=== PATIENT | male | born 1945 | race Native Hawaiian/Other Pacific Islander ===

== ENCOUNTER 2018-07-11 09:29 | Inpatient (IN) | payer OTHER ==
[2018-07-11 10:56] LABS: BASO # 0.1 K/uL (0.0-0.2); BASO % 0.5 % (0.0-2.0); EOS # 0.3 K/uL (0.0-0.7); EOS % 2.7 % (0.0-4.0); HEMOGLOBIN 15.1 g/dL (12.0-18.0); LYMPH # 1.8 K/uL (1.0-4.3); MEAN CELL VOLUME 90.3 fL (80.0-94.0); MEAN CORPUSCULAR HEMOGLOBIN 30.2 pg (27.0-31.0); MEAN CORPUSCULAR HGB CONC 33.5 g/dL (33.0-37.0); MEAN PLATELET VOLUME 8.4 fL (7.2-11.7); MONO % 9.9 % (0.0-10.0); NEUT # 6.5 K/uL (1.8-7.0); NEUT % 67.9 % (50.0-75.0); RBC 5.01 Mil/uL (4.40-5.90); RED CELL DISTRIBUTION WIDTH 13.3 % (11.5-14.5); WHITE BLOOD COUNT 9.6 K/uL (4.8-10.8)
[2018-07-11 11:02] LABS: URINE BILIRUBIN NEGATIVE (NEGATIVE); URINE BLOOD 1+ (NEGATIVE); URINE CLARITY Hazy (Clear); URINE COLOR Yellow (YELLOW); URINE GLUCOSE (UA) NORMAL (Normal); URINE LEUKOCYTE ESTERASE NEG Leu/uL (Negative); URINE PROTEIN NEGATIVE (NEGATIVE); URINE UROBILINOGEN NORMAL mg/dL (0.2-1.0)
[2018-07-11 11:02] LABS: INR 1.1; PARTIAL THROMBOPLASTIN TIME 29 SECONDS (21-34); PROTHROMBIN TIME 11.9 SECONDS (9.7-12.2)
[2018-07-11 11:06] LABS: ALB/GLOB RATIO 1.5 (1.0-2.1); ALBUMIN 4.5 g/dL (3.5-5.0); ALT/SGPT 13 U/L (21-72); AST/SGOT 30 U/L (17-59); BLOOD UREA NITROGEN 18 mg/dL (9-20); CALCIUM 8.9 mg/dl (8.6-10.4); GFR NON-AFRICAN AMERICAN 60
--- NOTE | 2018-07-11 11:10 | C.PDOC ---
History Of Present Illness 72 y/o male, w/PMhx of HTN and CABG with coronary stent, presents to the ER complaining of subjective dyspnea, palpitations, and "dry mouth" which has been present since yesterday. Patient is also complaining of left leg pain. Patient states that he was on a long flight from [facility] to the [place] Denies having fever, chills, CP, nausea, and vomiting. Time Seen by Provider: 07/11/18 10:27 Chief Complaint (Nursing): Shortness Of Breath History Per: Patient History/Exam Limitations: no limitations Onset/Duration Of Symptoms: Days Current Symptoms Are (Timing): Still Present Severity: Moderate Past Medical History Reviewed: Historical Data, Nursing Documentation, Vital Signs Vital Signs: Last Vital Signs Temp 97.8 F 07/11/18 09:32 Pulse 124 H 07/11/18 09:32 Resp 18 07/11/18 09:57 BP 159/92 H 07/11/18 09:32 Pulse Ox 95 07/11/18 09:32 - Medical History PMH: HTN Surgical History: CABG, Coronary Stent Family History: States: No Known Family Hx - Social History Hx Alcohol Use: No Hx Substance Use: No - Immunization History Hx Tetanus Toxoid Vaccination: No Hx Influenza Vaccination: No Hx Pneumococcal Vaccination: No Review Of Systems Except As Marked, All Systems Reviewed And Found Negative. Constitutional: Negative for: Fever, Chills Cardiovascular: Positive for: Palpitations. Negative for: Chest Pain Respiratory: Positive for: Other (subjective dyspnea) Musculoskeletal: Positive for: Leg Pain (left leg pain) Neurological: Negative for: Weakness, Numbness Physical Exam - Physical Exam Appears: Non-toxic, No Acute Distress Skin: Normal Color, Warm, Dry Head: Atraumatic, Normacephalic Eye(s): bilateral: Normal Inspection Nose: Normal Oral Mucosa: Moist Throat: Normal, No Erythema Neck: Supple Chest: Symmetrical Cardiovascular: Other (irregularly regular heart rate - tachycardic) Respiratory: Normal Breath Sounds, No Rales, No Rhonchi, No Wheezing Gastrointestinal/Abdominal: Soft, No Tenderness, No Guarding, No Rebound Extremity: Normal ROM Neurological/Psych: Oriented x3, Normal Speech ED Course And Treatment - Laboratory Results Result Diagrams: 07/11/18 10:48 07/11/18 10:48 Lab Results: PT 11.9 SECONDS (9.7-12.2) 07/11/18 10:48 INR 1.1 07/11/18 10:48 APTT 29 SECONDS (21-34) 07/11/18 10:48 Urine Color Yellow (YELLOW) 07/11/18 10:50 Urine Clarity Hazy (Clear) 07/11/18 10:50 Urine pH 7.0 (5.0-8.0) 07/11/18 10:50 Ur Specific [place] 1.010 (1.003-1.030) 07/11/18 10:50 Urine Protein Negative mg/dL (NEGATIVE) 07/11/18 10:50 Urine Glucose (UA) Normal mg/dL (Normal) 07/11/18 10:50 Urine Ketones Negative mg/dL (NEGATIVE) 07/11/18 10:50 Urine Blood 1+ (NEGATIVE) H 07/11/18 10:50 Urine Nitrate Negative (NEGATIVE) 07/11/18 10:50 Urine Bilirubin Negative (NEGATIVE) 07/11/18 10:50 Urine Urobilinogen Normal mg/dL (0.2-1.0) 07/11/18 10:50 Ur Leukocyte Esterase Neg [place]/uL (Negative) 07/11/18 10:50 Urine WBC (Auto) < 1 /hpf (0-5) 07/11/18 10:50 Urine RBC (Auto) 2 /hpf (0-3) 07/11/18 10:50 ECG: Interpreted By Me, Viewed By Mn ECG Rhythm: Sinus Rhythm Interpretation Of ECG: EKG 1 - Atrial Fibrillation [address]/ T wave abnormalities. EKG 2 - Normal Sinus Rhythm 64 bpm with lateral T wave changes Rate From EC O2 Sat by Pulse Oximetry: 95 (RA) Pulse Ox Interpretation: Normal - Other Rad CXR X-Ray: Viewed By Me, Read By Radiologist Interpretation: Date of service: 07/11/2018. HISTORY: chest pain. COMPARISON: No prior study available for comparison. FINDINGS: LUNGS: No active pulmonary disease. PLEURA: No significant pleural effusion identified, no pneumothorax apparent. CARDIOVASCULAR: Sternotomy wires and CABG clips. Heart size borderline enlarged. No aortic atherosclerotic calcification present. No pulmonary vascular congestion. OSSEOUS STRUCTURES: No significant abnormalities. VISUALIZED UPPER ABDOMEN: Normal. OTHER FINDINGS: None. IMPRESSION: No active disease. Medical Decision Making Medical Decision Making: new onset afib - also ro pe Plan: --Labs --EKG --CXR --UA --Cardizem noted trop, heaprin startted. s/p cardizem pt converted to sinus, nonspecifc changes, no cp. accpeted dr tan. Disposition - Disposition Disposition: HOSPITALIZED Disposition Time: 16:00 Condition: FAIR - Clinical Impression Clinical Impression: CHF (congestive heart failure), Atrial fibrillation with RVR - Scribe Statement The provider has reviewed the documentation as recorded by the Everett Hernández Provider Attestation: All medical record entries made by the Everett were at my direction and personally dictated by me. I have reviewed the chart and agree that the record accurately reflects my personal performance of the history, physical exam, medical decision making, and the department course for this patient. I have also personally directed, reviewed, and agree with the discharge instructions and disposition. Decision To Admit - Pt Status Changed To: Hospital Disposition Of: Inpatient - Admit Certification Admit to Inpatient:: After my assessment, the patient will require hosp italization for at least two midnights. This is because of the severity of symptoms shown, intensity of services needed, and/or the medical risk in this patient being treated as an outpatient. - InPatient: Physician Admission Certification: I certify that this patient requires 2 or more midnights of care for the following reason:: needs heparin - . Bed Request Type: Telemetry Admitting Physician: Oswaldo Tan Patient Diagnosis: CHF (congestive heart failure), Atrial fibrillation with RVR
[2018-07-11 11:42] LABS: D DIMER < 200 ng/mlDDU (0-243)
[2018-07-11] MEDS ORDERED: Heparin25000 units/250ml 1/2NS 25,000 UNITS/250 ML BAG IV ONE (11:44)
[2018-07-11 12:02] LABS: B-TYPE NATRIURETIC PEPTIDE 2780 pg/mL (0-900)
--- NOTE | 2018-07-11 12:25 | RAD ---
Date of service: 07/11/2018 HISTORY: chest pain COMPARISON: No prior study available for comparison FINDINGS: LUNGS: No active pulmonary disease. PLEURA: No significant pleural effusion identified, no pneumothorax apparent. CARDIOVASCULAR: Sternotomy wires and CABG clips. Heart size borderline enlarged. No aortic atherosclerotic calcification present. No pulmonary vascular congestion. OSSEOUS STRUCTURES: No significant abnormalities. VISUALIZED UPPER ABDOMEN: Normal. OTHER FINDINGS: None. IMPRESSION: No active disease.
[2018-07-11 13:58] VITALS: RESP 20
--- NOTE | 2018-07-11 15:04 | CP.PCM.HP ---
History of Present Illness - History of Present Illness History of Present Illness: PGY-1 History and Physical for Dr. Ramírez Smith Sejaldae Luther is a 72-year-old male with HTN, vertigo, CABG and stenting presenting with uncomfortable feeling in chest, palpitations, tachycardia, elevated blood pressure, dry mouth, left hip pain. These complaints, except the leg pain, started last night when his son took his blood pressure and checked his pulse. The symptoms remained until the morning, at which point he agreed to go to the hospital. Upon pt interview the uncomfortable feeling in chest, palpitations, tachycardia had become better. The leg pain started 1 month ago when pt had been on a 16-hour flight from [facility] to the [place] to visit his who he has been staying with for the past month. During the flight he was not able to move much and developed pain of the left hip that radiates down the leg to the top of the foot. Pt states he exercises regularly everyday, but had not been able to since the leg pain. Pt believes it is this lack of regular exercise which caused him to feel the palpitations, tachycardia, uncomfortable feeling in the chest, and elevated blood pressure. The pain is intermittent and he rates the leg pain an 8/10 at worst and 0/10 at best and currently. The pain will last for 5-10 minutes until he is able to readjust his body and relieve the pain. He takes ibuprofen which helps, and walking/exercising/taking stairs aggravates the leg pain. Surgical: Angioplasty 2005, CABG 2007 Social: No drugs, no tobacco, alcohol very little, exercises regularly, 2-3 cups of tea per day. Lives in a 1-story home in [facility]. Visits [place] once/year to visit son. Works in the . Allergies: none Medication: Metoprolol, Clopidogrel, Statin, Aspirin, Olmosartan, Betahistine hydrochloride (for dizziness) Past medical Hx: HTN, Vertigo Family Hx: Father at 56 (pt suspects from a heart condition) PMD: PMD via in [facility] Code status: Patient stated that he would not like to be resuscitated, but per patient and son's wishes, they will take some more time to discuss. Present on Admission - Present on Admission Any Indicators Present on Admission: No Review of Systems - Constitutional Constitutional: absent: Chills, Fever - EENT Eyes: absent: Blurred Vision, Change in Vision Ears: absent: Tinnitus, Dizziness Nose/Mouth/Throat: absent: Nasal Congestion, Nasal Discharge - Cardiovascular Cardiovascular: Palpitations (resolved), Rapid Heart Rate (resolved). absent: Chest Pain, Chest Pain at Rest, Dyspnea, Lightheadedness, Pedal Edema - Gastrointestinal Gastrointestinal: absent: Belching, Bloating, Constipation, Diarrhea, Nausea, Vomiting - Genitourinary Genitourinary: absent: Dysuria, Flank Pain - Musculoskeletal Musculoskeletal: absent: Back Pain, Stiffness - Neurological Neurological: absent: Confusion, Dizziness, Focal Weakness, Headaches, Paresthesias, Sensory Deficit, Tingling - Psychiatric Psychiatric: absent: Anxiety, Depression - Hematologic/Lymphatic Hematologic: absent: Easy Bleeding, Easy Bruising Past Patient History - Past Social History Smoking Status: Never Smoked - CARDIAC Hx Hypertension: Yes - NEUROLOGICAL Hx Dizziness: Yes - HEENT Hx Cataracts: Yes - MUSCULOSKELETAL/RHEUMATOLOGICAL Hx Falls: Yes - PSYCHIATRIC Hx Substance Use: No - SURGICAL HISTORY Hx Coronary Artery Bypass Graft: Yes Hx Coronary Stent: Yes - ANESTHESIA Hx Anesthesia: Yes Hx Anesthesia Reactions: No Has any member of the family had a problem w/ anesthesia?: No Meds Allergies/Adverse Reactions: Allergies Allergy/AdvReac Type Severity Reaction Status Date / Time No Known Allergies Allergy Unverified 07/11/18 09:37 Physical Exam - Head Exam Head Exam: ATRAUMATIC, NORMOCEPHALIC - Eye Exam Eye Exam: EOMI - ENT Exam ENT Exam: Mucous Membranes Moist - Respiratory Exam Respiratory Exam: Clear to Auscultation Bilateral, NORMAL BREATHING PATTERN. absent: Rales, Rhonchi, Wheezes - Cardiovascular Exam Cardiovascular Exam: REGULAR RHYTHM, +S1, +S2 - GI/Abdominal Exam GI & Abdominal Exam: Normal Bowel Sounds, Soft. absent: Firm, Guarding, Tenderness - Extremities Exam Extremities exam: Positive for: normal inspection. Negative for: pedal edema, tenderness - Back Exam Back exam: NORMAL INSPECTION. absent: vertebral tenderness - Neurological Exam Neurological exam: Alert, CN II-XII Intact, Oriented x3 - Psychiatric Exam Psychiatric exam: Normal Affect, Normal Mood - Skin Skin Exam: Dry, Intact Results - Vital Signs Recent Vital Signs: Last Vital Signs Temp 97.9 F 07/11/18 13:57 Pulse 68 07/11/18 13:57 Resp 20 07/11/18 13:57 BP 121/70 07/11/18 13:57 Pulse Ox 95 07/11/18 14:22 - Labs Result Diagrams: 07/11/18 10:48 07/11/18 10:48 Labs: Laboratory Results - last 24 hr 07/11/18 07/11/18 07/11/18 10:48 10:48 10:48 WBC 9.6 RBC 5.01 Hgb 15.1 Hct 45.2 MCV 90.3 MCH 30.2 MCHC 33.5 RDW 13.3 Plt Count 295 MPV 8.4 Neut % (Auto) 67.9 Lymph % (Auto) 19.0 L [place] % (Auto) 9.9 Eos % (Auto) 2.7 Baso % (Auto) 0.5 Neut # (Auto) 6.5 Lymph # (Auto) 1.8 [place] # (Auto) 1.0 H Eos # (Auto) 0.3 Baso # (Auto) 0.1 PT 11.9 INR 1.1 APTT 29 D-Dimer, Quantitative < 200 Sodium 136 Potassium 4.4 Chloride 98 Carbon Dioxide 29 Anion Gap 13 BUN 18 Creatinine 1.2 Est GFR ( Amer) > 60 Est GFR (Non-Af Amer) 60 Random Glucose 128 H Calcium 8.9 Total Bilirubin 0.7 AST 30 ALT 13 L Alkaline Phosphatase 79 Troponin I 0.1450 H* NT-Pro-B Natriuret Pep 2780 H Total Protein 7.5 Albumin 4.5 Globulin 3.0 Albumin/Globulin Ratio 1.5 Urine Color Urine Clarity Urine pH Ur Specific [place] Urine Protein Urine Glucose (UA) Urine Ketones Urine Blood Urine Nitrate Urine Bilirubin Urine Urobilinogen Ur Leukocyte Esterase Urine WBC (Auto) Urine RBC (Auto) 07/11/18 10:50 WBC RBC Hgb Hct MCV MCH MCHC RDW Plt Count MPV Neut % (Auto) Lymph % (Auto) [place] % (Auto) Eos % (Auto) Baso % (Auto) Neut # (Auto) Lymph # (Auto) [place] # (Auto) Eos # (Auto) Baso # (Auto) PT INR APTT D-Dimer, Quantitative Sodium Potassium Chloride Carbon Dioxide Anion Gap BUN Creatinine Est GFR ( Amer) Est GFR (Non-Af Amer) Random Glucose Calcium Total Bilirubin AST ALT Alkaline Phosphatase Troponin I NT-Pro-B Natriuret Pep Total Protein Albumin Globulin Albumin/Globulin Ratio Urine Color Yellow Urine Clarity Hazy Urine pH 7.0 Ur Specific [place] 1.010 Urine Protein Negative Urine Glucose (UA) Normal Urine Ketones Negative Urine Blood 1+ H Urine Nitrate Negative Urine Bilirubin Negative Urine Urobilinogen Normal Ur Leukocyte Esterase Neg Urine WBC (Auto) < 1 Urine RBC (Auto) 2 Assessment & Plan - Assessment and Plan (Free Text) Assessment: New onset A Fib with RVR -Initial HR in 140s -S/p STAT dose cardizem in ED --> converted and remained normal sinus -Currently sinus on tele. Repeat EKG NSR -CHADS VASC score of 2 -On heparin drip -Pro BNP 2800 -TSH, free T4 -UDS -Echo - f/u Meds -Home metoprolol succ XL 50 mg PO daily -Heparin drip -Daily ASA 81 mg PO daily -Cardio consulted, Dr. Gatica - f/u recs Elevated troponins -Suspect 2/2 Afib - no chest pain, no ST changes on EKG, and sx resolved -Initial EKG - NSR -F/u EKG/ROMIs 16:00, 22:00 Elevated pro-BNP -Again, suspect 2/2 A-fib --No rales/crackles on exam, patient not short of breath, no pedal edema -f/u echo Hx CAD s/p CABG 12 years ago Meds -ASA 81 mg PO daily -Toprol XL 50 mg PO daily -Atorvastatin 20 mg PO HS --> Started Crestor 10 mg PO HS -Home plavix held (75 mg PO daily ) --> On hep drip Ppx: No GI PPx indicated DVT: On heparin drip Assessment and plan d/w Dr. Ramírez Martinez, PGY-1
[2018-07-11 17:58] LABS: CK-MB 3.25 ng/mL (0.0-3.38); TROPONIN I 0.15 ng/mL (0.00-0.120)
[2018-07-11 20:42] LABS: INR 1.2; PROTHROMBIN TIME 12.9 SECONDS (9.7-12.2)
--- NOTE | 2018-07-11 22:30 | CP.PCM.CON ---
History of Present Illness - History of Present Illness History of Present Illness: 72 M with hx of CAD s/p CABG admitted for new onset A Fib Elevated Trops and ProBNP ZAINAB Heparin drip Antiplates ECHO Cardiac cath prior to discharge Past Patient History - Past Social History Smoking Status: Never Smoked - CARDIAC Hx Hypertension: Yes - NEUROLOGICAL Hx Dizziness: Yes - HEENT Hx Cataracts: Yes - MUSCULOSKELETAL/RHEUMATOLOGICAL Hx Falls: Yes - PSYCHIATRIC Hx Substance Use: No - SURGICAL HISTORY Hx Coronary Artery Bypass Graft: Yes Hx Coronary Stent: Yes - ANESTHESIA Hx Anesthesia: Yes Hx Anesthesia Reactions: No Has any member of the family had a problem w/ anesthesia?: No Meds Allergies/Adverse Reactions: Allergies Allergy/AdvReac Type Severity Reaction Status Date / Time No Known Allergies Allergy Unverified 07/11/18 09:37 - Medications Medications: Current Medications Acetaminophen (Tylenol 325mg Tab) 650 mg PO Q6 PRN PRN Reason: Pain, Mild (1-3) Aspirin (Ecotrin) 81 mg PO DAILY [facility] Furosemide (Lasix) 20 mg IVP DAILY [facility] Heparin Sodium/Sodium Chloride (Heparin 38549 Units/250ml 1/2 Normal Saline) 25,000 units in 250 mls @ 8.165 mls/hr IV .Q24H ONE; Protocol Stop: 07/12/18 11:43 Last Admin: 07/11/18 13:00 Dose: 12 units/kg/hr, 8.165 mls/hr Losartan Potassium (Cozaar) 100 mg PO DAILY [facility] Metoprolol Succinate (Toprol Xl) 50 mg PO DAILY [facility] Rosuvastatin Calcium (Crestor) 10 mg PO HS [facility] Last Admin: 07/11/18 21:38 Dose: 10 mg Results - Vital Signs Recent Vital Signs: Last Vital Signs Temp 97.9 F 07/11/18 15:00 Pulse 68 07/11/18 16:00 Resp 20 07/11/18 15:00 BP 107/66 07/11/18 15:00 Pulse Ox 95 07/11/18 16:24 - Labs Result Diagrams: 07/11/18 10:48 07/11/18 10:48 Labs: Laboratory Results - last 24 hr 07/11/18 07/11/18 07/11/18 10:48 10:48 10:48 WBC 9.6 RBC 5.01 Hgb 15.1 Hct 45.2 MCV 90.3 MCH 30.2 MCHC 33.5 RDW 13.3 Plt Count 295 MPV 8.4 Neut % (Auto) 67.9 Lymph % (Auto) 19.0 L [place] % (Auto) 9.9 Eos % (Auto) 2.7 Baso % (Auto) 0.5 Neut # (Auto) 6.5 Lymph # (Auto) 1.8 [place] # (Auto) 1.0 H Eos # (Auto) 0.3 Baso # (Auto) 0.1 PT 11.9 INR 1.1 APTT 29 D-Dimer, Quantitative < 200 Sodium 136 Potassium 4.4 Chloride 98 Carbon Dioxide 29 Anion Gap 13 BUN 18 Creatinine 1.2 Est GFR ( Amer) > 60 Est GFR (Non-Af Amer) 60 Random Glucose 128 H Calcium 8.9 Total Bilirubin 0.7 AST 30 ALT 13 L Alkaline Phosphatase 79 Total Creatine Kinase CK-MB (Mass) Troponin I 0.1450 H* NT-Pro-B Natriuret Pep 2780 H Total Protein 7.5 Albumin 4.5 Globulin 3.0 Albumin/Globulin Ratio 1.5 Urine Color Urine Clarity Urine pH Ur Specific [place] Urine Protein Urine Glucose (UA) Urine Ketones Urine Blood Urine Nitrate Urine Bilirubin Urine Urobilinogen Ur Leukocyte Esterase Urine WBC (Auto) Urine RBC (Auto) 07/11/18 07/11/18 07/11/18 10:50 16:50 20:18 WBC RBC Hgb Hct MCV MCH MCHC RDW Plt Count MPV Neut % (Auto) Lymph % (Auto) [place] % (Auto) Eos % (Auto) Baso % (Auto) Neut # (Auto) Lymph # (Auto) [place] # (Auto) Eos # (Auto) Baso # (Auto) PT 12.9 H INR 1.2 APTT 120 H* D D-Dimer, Quantitative Sodium Potassium Chloride Carbon Dioxide Anion Gap BUN Creatinine Est GFR ( Amer) Est GFR (Non-Af Amer) Random Glucose Calcium Total Bilirubin AST ALT Alkaline Phosphatase Total Creatine Kinase 128 CK-MB (Mass) 3.25 Troponin I 0.1500 H* NT-Pro-B Natriuret Pep Total Protein Albumin Globulin Albumin/Globulin Ratio Urine Color Yellow Urine Clarity Hazy Urine pH 7.0 Ur Specific [place] 1.010 Urine Protein Negative Urine Glucose (UA) Normal Urine Ketones Negative Urine Blood 1+ H Urine Nitrate Negative Urine Bilirubin Negative Urine Urobilinogen Normal Ur Leukocyte Esterase Neg Urine WBC (Auto) < 1 Urine RBC (Auto) 2
[2018-07-11 23:06] LABS: BARBITURATES, UR NEGATIVE (NEGATIVE); BENZODIAZEPINES, UR NEGATIVE (NEGATIVE); OPIATES, UR NEGATIVE (NEGATIVE); PHENCYCLIDINE, UR NEGATIVE (NEGATIVE)
[2018-07-11 23:19] LABS: CK-MB 2.32 ng/mL (0.0-3.38); TROPONIN I 0.125 ng/mL (0.00-0.120)
[2018-07-12] MEDS ORDERED: Heparin25000 units/250ml 1/2NS 25,000 UNITS/250 ML BAG IV ONE (06:15)
[2018-07-12 07:18] LABS: BASO # 0.1 K/uL (0.0-0.2); BASO % 0.7 % (0.0-2.0); EOS # 0.5 K/uL (0.0-0.7); EOS % 5.6 % (0.0-4.0); LYMPH # 2.2 K/uL (1.0-4.3); LYMPH % 25.9 % (20.0-40.0); MEAN CELL VOLUME 90.4 fL (80.0-94.0); MEAN CORPUSCULAR HGB CONC 33.2 g/dL (33.0-37.0); MEAN PLATELET VOLUME 8.4 fL (7.2-11.7); MONO # 0.8 K/uL (0.0-0.8); MONO % 9.4 % (0.0-10.0); NEUT % 58.4 % (50.0-75.0); RBC 4.33 Mil/uL (4.40-5.90); RED CELL DISTRIBUTION WIDTH 12.9 % (11.5-14.5); WHITE BLOOD COUNT 8.5 K/uL (4.8-10.8)
--- NOTE | 2018-07-12 07:46 | CP.PCM.PN ---
Subjective - Date & Time of Evaluation Date of Evaluation: 07/12/18 Time of Evaluation: 07:54 - Subjective Subjective: PGY-[address] Ramírez Smith Patient seen and examined at bedside. No acute events overnight. Patient has been sinus on tele. Patient to go for echo and cardiac cath today, will follow up results. Patient has no complaints at this time, denies any chest pain, palpitations, shortness of breath. Objective - Vital Signs/Intake and Output Vital Signs (last 24 hours): Temp Pulse Resp BP Pulse Ox 98.1 F 69 20 111/65 98 07/11/18 23:05 07/11/18 23:05 07/11/18 23:05 07/11/18 23:05 07/11/18 23:05 Intake and Output: 07/12/18 07/12/18 06:59 18:59 Intake Total 545.6 Balance 545.6 - Medications Medications: Current Medications Acetaminophen (Tylenol 325mg Tab) 650 mg PO Q6 PRN PRN Reason: Pain, Mild (1-3) Aspirin (Ecotrin) 81 mg PO DAILY [facility] Furosemide (Lasix) 20 mg IVP DAILY [facility] Heparin Sodium/Sodium Chloride (Heparin 33430 Units/250ml 1/2 Normal Saline) 25,000 units in 250 mls @ 6.124 mls/hr IV .Q24H ONE; Protocol Stop: 07/13/18 06:14 Last Admin: 07/12/18 06:07 Dose: 9 units/kg/hr, 6.124 mls/hr Losartan Potassium (Cozaar) 100 mg PO DAILY [facility] Metoprolol Succinate (Toprol Xl) 50 mg PO DAILY [facility] Rosuvastatin Calcium (Crestor) 10 mg PO HS [facility] Last Admin: 07/11/18 21:38 Dose: 10 mg - Labs Labs: 07/12/18 03:40 07/11/18 10:48 PT 12.9 SECONDS (9.7-12.2) H 07/11/18 20:18 INR 1.2 07/11/18 20:18 APTT 120 SECONDS (21-34) H* D 07/11/18 20:18 - Constitutional Appears: Non-toxic, No Acute Distress - Head Exam Head Exam: ATRAUMATIC, NORMOCEPHALIC - Eye Exam Eye Exam: EOMI - ENT Exam ENT Exam: Mucous Membranes Moist - Respiratory Exam Respiratory Exam: Clear to Ausculation Bilateral, NORMAL BREATHING PATTERN. absent: Rhonchi, Wheezes - Cardiovascular Exam Cardiovascular Exam: REGULAR RHYTHM, +S1, +S2 - GI/Abdominal Exam GI & Abdominal Exam: Soft, Normal Bowel Sounds. absent: Tenderness - Extremities Exam Extremities Exam: absent: Pedal Edema, Tenderness - Neurological Exam Neurological Exam: Alert, Awake, Oriented x3 - Psychiatric Exam Psychiatric exam: Normal Affect, Normal Mood - Skin Skin Exam: Dry, Intact Assessment and Plan - Assessment and Plan (Free Text) Assessment: New onset A Fib with RVR -Initial HR in 140s -S/p STAT dose cardizem in ED --> converted and remained normal sinus -Currently sinus on tele. Repeat EKG NSR -CHADS VASC score of 2 -On heparin drip -Pro BNP 2800 -TSH, free T4 - f/u -UDS - negative -Echo - f/u Meds -Home metoprolol succ XL 50 mg PO daily -Heparin drip -Daily ASA 81 mg PO daily -Cardio consulted, Dr. Gatica --Recommending cath today prior to discharge - will f/u results Elevated troponins -Suspect 2/2 Afib - no chest pain, no ST changes on EKG, and sx resolved -Initial EKG - NSR -ROMIs remained elevated, third set of ROMIs Elevated pro-BNP -Again, suspect 2/2 A-fib --No rales/crackles on exam, patient not short of breath, no pedal edema -f/u echo, f/u cath Hx CAD s/p CABG 12 years ago Meds -ASA 81 mg PO daily -Toprol XL 50 mg PO daily -Atorvastatin 20 mg PO HS --> Started Crestor 10 mg PO HS -Home plavix held (75 mg PO daily ) --> On hep drip Ppx: No GI PPx indicated DVT: On heparin drip Assessment and plan d/w Dr. Ramírez Martinez, PGY-1
[2018-07-12 08:29] LABS: CK-MB 1.88 ng/mL (0.0-3.38)
[2018-07-12 08:45] LABS: ALB/GLOB RATIO 1.3 (1.0-2.1); ALT/SGPT 17 U/L (21-72); AST/SGOT 70 U/L (17-59); BLOOD UREA NITROGEN 23 mg/dL (9-20); CALCIUM 8.7 mg/dl (8.6-10.4); GFR NON-AFRICAN AMERICAN > 60; HDL CHOLESTEROL 32 mg/dL (30-70)
[2018-07-12 08:54] LABS: LDL CHOLESTEROL 87 mg/dL (0-129)
[2018-07-12] MEDS: Metoprolol Succinate 50 mg XL Tab PO SCH (09:48)
--- NOTE | 2018-07-12 11:17 | CP.PCM.PN ---
<Nazario Ware - Last Filed: 07/12/18 17:39> Subjective - Date & Time of Evaluation Date of Evaluation: 07/12/18 Time of Evaluation: 11:16 - Subjective Subjective: PGY2 Progress Note: Dr. Gatica Service Patient returned from Echo. Patient denies any chest pain or shortness of breath. Per nursing no acute events occurred overnight. Patient denies any other symptoms upon examination today. Objective - Vital Signs/Intake and Output Vital Signs (last 24 hours): Temp Pulse Resp BP Pulse Ox 97.9 F 66 20 116/71 98 07/12/18 07:00 07/12/18 08:15 07/12/18 07:00 07/12/18 09:47 07/12/18 07:00 Intake and Output: 07/12/18 07/12/18 06:59 18:59 Intake Total 545.6 0 Balance 545.6 0 - Medications Medications: Current Medications Acetaminophen (Tylenol 325mg Tab) 650 mg PO Q6 PRN PRN Reason: Pain, Mild (1-3) Aspirin (Ecotrin) 81 mg PO DAILY [facility] Last Admin: 07/12/18 09:47 Dose: 81 mg Furosemide (Lasix) 20 mg IVP DAILY [facility] Last Admin: 07/12/18 09:47 Dose: 20 mg Heparin Sodium/Sodium Chloride (Heparin 59003 Units/250ml 1/2 Normal Saline) 25,000 units in 250 mls @ 6.124 mls/hr IV .Q24H ONE; Protocol Stop: 07/13/18 06:14 Last Titration: 07/12/18 08:58 Dose: 13 units/kg/hr, 8.845 mls/hr Losartan Potassium (Cozaar) 100 mg PO DAILY [facility] Last Admin: 07/12/18 09:48 Dose: 100 mg Metoprolol Succinate (Toprol Xl) 50 mg PO DAILY [facility] Last Admin: 07/12/18 09:48 Dose: 50 mg Rosuvastatin Calcium (Crestor) 10 mg PO HS [facility] Last Admin: 07/11/18 21:38 Dose: 10 mg - Labs Labs: 07/12/18 03:40 07/12/18 03:40 PT 12.9 SECONDS (9.7-12.2) H 07/11/18 20:18 INR 1.2 07/11/18 20:18 APTT 32 SECONDS (21-34) D 07/12/18 03:40 - Head Exam Head Exam: ATRAUMATIC, NORMAL INSPECTION - Eye Exam Eye Exam: EOMI, Normal appearance, PERRL. absent: Periorbital tenderness Pupil Exam: NORMAL ACCOMODATION - ENT Exam ENT Exam: Mucous Membranes Moist, Normal Oropharynx - Respiratory Exam Respiratory Exam: Clear to Ausculation Bilateral, NORMAL BREATHING PATTERN. absent: Prolonged Expiratory Phase, Respiratory Distress - Cardiovascular Exam Cardiovascular Exam: REGULAR RHYTHM, +S1, +S2 - GI/Abdominal Exam GI & Abdominal Exam: Soft, Normal Bowel Sounds. absent: Hyperactive Bowel Sounds - Extremities Exam Extremities Exam: absent: Pedal Edema - Back Exam Back Exam: NORMAL INSPECTION. absent: CVA tenderness (R), paraspinal tenderness - Neurological Exam Neurological Exam: Alert, Awake, Oriented x3 - Psychiatric Exam Psychiatric exam: Normal Affect, Normal Mood - Skin Skin Exam: Dry, Intact, Normal Color Assessment and Plan - Assessment and Plan (Free Text) Assessment: New onset A Fib with RVR -Currently sinus on tele. Repeat EKG NSR -CHADS VASC score of 2 -On heparin drip -Pro BNP 2780 -TSH pending. Free T4: 1.09 -UDS - negative -Echo :EF65-70% :Mild mitral regurgitation :Left atrium moderately dilated. -Patient to have Cardiac cath tomorrow @ 8a.m. -NPO after midnight except medications -Heparin drip put on hold Medications -Home metoprolol succ XL 50 mg PO daily -ASA 81 mg PO daily Elevated troponins -Suspect 2/2 Afib - no chest pain, no ST changes on EKG, and sx resolved -Initial EKG - NSR -Toponin: .145, .150, .125, .09 Elevated pro-BNP -Again, suspect 2/2 A-fib -f/u echo, f/u cath Hx CAD s/p CABG 12 years ago Medications ASA 81 mg PO daily Toprol XL 50 mg PO daily Started Crestor 10 mg PO HS Ppx: No GI PPx indicated DVT: On heparin drip Plan discussed with Attending Dr. Gatica. Nazario Ware, PGY2 <Jani Gatica - Last Filed: 07/13/18 00:09> Objective - Vital Signs/Intake and Output Vital Signs (last 24 hours): Temp Pulse Resp BP Pulse Ox 97.4 F L 61 20 114/74 98 07/12/18 15:16 07/12/18 15:16 07/12/18 15:16 07/12/18 15:16 07/12/18 15:16 Intake and Output: 07/12/18 07/13/18 18:59 06:59 Intake Total 0 Balance 0 - Medications Medications: Current Medications Acetaminophen (Tylenol 325mg Tab) 650 mg PO Q6 PRN PRN Reason: Pain, Mild (1-3) Aspirin (Ecotrin) 81 mg PO DAILY [facility] Last Admin: 07/12/18 09:47 Dose: 81 mg Furosemide (Lasix) 20 mg IVP DAILY [facility] Last Admin: 07/12/18 09:47 Dose: 20 mg Heparin Sodium/Sodium Chloride (Heparin 31038 Units/250ml 1/2 Normal Saline) 25,000 units in 250 mls @ 6.124 mls/hr IV .Q24H ONE; Protocol Stop: 07/13/18 06:14 Last Titration: 07/12/18 08:58 Dose: 13 units/kg/hr, 8.845 mls/hr Losartan Potassium (Cozaar) 100 mg PO DAILY [facility] Last Admin: 07/12/18 09:48 Dose: 100 mg Metoprolol Succinate (Toprol Xl) 50 mg PO DAILY [facility] Last Admin: 07/12/18 09:48 Dose: 50 mg Rosuvastatin Calcium (Crestor) 10 mg PO HS [facility] Last Admin: 07/12/18 22:00 Dose: 10 mg - Labs Labs: 07/12/18 03:40 07/12/18 03:40 PT 12.9 SECONDS (9.7-12.2) H 07/11/18 20:18 INR 1.2 07/11/18 20:18 APTT > 400 SECONDS (21-34) H* D 07/12/18 17:05
--- NOTE | 2018-07-12 12:09 | CARD ---
APPROVED REPORT Date of service: 07/12/2018 EXAM: Two-dimensional and M-mode echocardiogram with Doppler and color Doppler. INDICATION Dizziness and Vertigo Atrial Fibrillation CAD Congestive Heart Failure Surgery/Intervention CABD DIMENSIONS IVSd0.6 (0.7-1.1cm)Aortic Root (2D)2.9 (2.0-3.7cm) LVDd4.7 (3.9-5.9cm)PWd0.7 (0.7-1.1cm) LA Bawvqx01 (18-58mL)LVDs3.1 (2.5-4.0cm) FS (%) 33.7 %LVEF (%)62.5 (>50%) LVEF (Ortega's)67.99 %IVC0.00 cm M-Mode DIMENSIONS Left Atrium (MM)4.46 (2.5-4.0cm)IVSd0.44 (0.7-1.1cm) Aortic Root3.04 (2.2-3.7cm)LVDd5.28 (4.0-5.6cm) Aortic Cusp Exc.1.76 (1.5-2.0cm)PWd0.62 (0.7-1.1cm) FS (%) 41 %LVDs3.12 (2.0-3.8cm) LVEF (%)71 (>50%) Mitral Valve MV E Ndsvvgpr31.3cm/sMV A Qvzlvlbk93.9cm/sE/A ratio1.3 TDI Lateral E' Peak V12.81cm/sMedial E' Peak V5.45cm/sE/Lateral E'4.1 E/Medial E'9.6 Tricuspid Valve TR Peak Tjwylbco457zi/sTR Peak Gr.18zmFiJAXJ97keAv LEFT VENTRICLE The left ventricle is normal size. There is normal left ventricular wall thickness. The Ejection Fraction is 65-70%. There is normal LV segmental wall motion. The left ventricular diastolic function is normal. RIGHT VENTRICLE The right ventricle is normal size. The right ventricular systolic function is normal. ATRIA The left atrium is moderately dilated. The right atrium size is normal. The interatrial septum is intact with no evidence for an atrial septal defect. AORTIC VALVE The aortic valve is trileaflet. The aortic valve is mildly calcified. No aortic regurgitation is present. MITRAL VALVE The mitral valve is normal in structure. There is no mitral valve regurgitation noted. TRICUSPID VALVE The tricuspid valve is normal in structure. There is mild tricuspid regurgitation. Right ventricular systolic pressure is estimated at 31 mmHg. There is no pulmonary hypertension. PULMONIC VALVE The pulmonary valve is normal in structure. There is moderate pulmonic valvular regurgitation. GREAT VESSELS The aortic root is normal in size. The IVC is normal in size and collapses >50% with inspiration. PERICARDIAL EFFUSION There is no pericardial effusion. <Conclusion> The left ventricle is normal size. There is normal left ventricular wall thickness. The Ejection Fraction is 65-70%. The left ventricular diastolic function is normal. The left atrium is moderately dilated. There is mild tricuspid regurgitation. Right ventricular systolic pressure is estimated at 31 mmHg. There is no pulmonary hypertension. The pulmonary valve is normal in structure. The aortic root is normal in size. There is no pericardial effusion.
[2018-07-13 07:09] LABS: BASO % 0.5 % (0.0-2.0); EOS # 0.6 K/uL (0.0-0.7); HEMOGLOBIN 13.5 g/dL (12.0-18.0); LYMPH # 2.2 K/uL (1.0-4.3); LYMPH % 25.3 % (20.0-40.0); MEAN CELL VOLUME 90.6 fL (80.0-94.0); MEAN CORPUSCULAR HEMOGLOBIN 28.9 pg (27.0-31.0); MEAN PLATELET VOLUME 8.6 fL (7.2-11.7); MONO # 0.8 K/uL (0.0-0.8); MONO % 9.1 % (0.0-10.0); NEUT # 5.1 K/uL (1.8-7.0); NEUT % 58.1 % (50.0-75.0); NRBC % 0.1 % (0.0-2.0); RBC 4.66 Mil/uL (4.40-5.90); RED CELL DISTRIBUTION WIDTH 13.3 % (11.5-14.5); WHITE BLOOD COUNT 8.8 K/uL (4.8-10.8)
[2018-07-13 07:46] LABS: ALB/GLOB RATIO 1.3 (1.0-2.1); ALBUMIN 4.1 g/dL (3.5-5.0); ALT/SGPT 14 U/L (21-72); AST/SGOT 38 U/L (17-59); BLOOD UREA NITROGEN 18 mg/dL (9-20); CALCIUM 8.5 mg/dl (8.6-10.4); GFR NON-AFRICAN AMERICAN > 60
[2018-07-13] MEDS: Metoprolol Succinate 50 mg XL Tab PO SCH (09:09)
[2018-07-13 11:24] LABS: INR 1.1; PROTHROMBIN TIME 11.6 SECONDS (9.7-12.2)
--- NOTE | 2018-07-13 11:33 | CARD ---
APPROVED REPORT Date of service: 07/11/2018 EKG Measurement Heart [id number] <Conclusion> Atrial fibrillation with rapid ventricular response ST & T wave abnormality, consider inferior ischemia Abnormal ECG
[2018-07-13] MEDS ORDERED: Midazolam 2 MG/2 ML VIAL ONE (14:25)
[2018-07-13] MEDS ORDERED: Phenylephrine 10 mg/ml Inj ONE (14:55)
[2018-07-13] MEDS ORDERED: Iodixanol 320 MG/ML 100 ML BOTTLE IV ONE (14:58)
--- NOTE | 2018-07-13 15:02 | CP.PCM.PN ---
Subjective - Date & Time of Evaluation Date of Evaluation: 07/13/18 Time of Evaluation: 15:03 - Subjective Subjective: PGY-[address] Ramírez Smith Patient seen and examined at bedside. No acute events overnight. Patient seen and examined today prior to cardiac cath - will follow up results of cath with Dr. Gatica. Patient had no complaints this morning. Patient denies chest pain, palpitations, headache, n/v/d/c, dizziness, shortness of breath. Objective - Vital Signs/Intake and Output Vital Signs (last 24 hours): Temp Pulse Resp BP Pulse Ox 97.9 F 78 20 122/77 95 07/13/18 07:00 07/13/18 08:00 07/13/18 07:00 07/13/18 09:09 07/13/18 07:00 - Medications Medications: Current Medications Acetaminophen (Tylenol 325mg Tab) 650 mg PO Q6 PRN PRN Reason: Pain, Mild (1-3) Aspirin (Ecotrin) 81 mg PO DAILY [facility] Last Admin: 07/13/18 09:09 Dose: 81 mg Furosemide (Lasix) 20 mg IVP DAILY [facility] Last Admin: 07/13/18 09:09 Dose: 20 mg Losartan Potassium (Cozaar) 100 mg PO DAILY [facility] Last Admin: 07/13/18 09:09 Dose: 100 mg Metoprolol Succinate (Toprol Xl) 50 mg PO DAILY [facility] Last Admin: 07/13/18 09:09 Dose: 50 mg Rosuvastatin Calcium (Crestor) 10 mg PO HS [facility] Last Admin: 07/12/18 22:00 Dose: 10 mg - Labs Labs: 07/13/18 07:00 07/13/18 07:00 PT 11.6 SECONDS (9.7-12.2) 07/13/18 10:54 INR 1.1 07/13/18 10:54 APTT 34 SECONDS (21-34) D 07/13/18 10:54 - Constitutional Appears: Non-toxic, No Acute Distress - Head Exam Head Exam: ATRAUMATIC, NORMOCEPHALIC - Eye Exam Eye Exam: EOMI - ENT Exam ENT Exam: Mucous Membranes Moist - Neck Exam Neck Exam: Full ROM, Tenderness - Respiratory Exam Respiratory Exam: Clear to Ausculation Bilateral, NORMAL BREATHING PATTERN. absent: Rales, Rhonchi, Wheezes - Cardiovascular Exam Cardiovascular Exam: REGULAR RHYTHM, +S1, +S2 - GI/Abdominal Exam GI & Abdominal Exam: Soft, Normal Bowel Sounds. absent: Tenderness - Extremities Exam Extremities Exam: Normal Inspection. absent: Pedal Edema, Tenderness - Neurological Exam Neurological Exam: Alert, Awake, CN II-XII Intact, Oriented x3 - Psychiatric Exam Psychiatric exam: Normal Affect, Normal Mood - Skin Skin Exam: Dry, Intact Assessment and Plan - Assessment and Plan (Free Text) Assessment: New onset A Fib with RVR -Initial HR in 140s -S/p STAT dose cardizem in ED --> converted and remained normal sinus -Currently sinus on tele. Repeat EKG NSR -CHADS VASC score of 2 -On heparin drip -Pro BNP 2800 -TSH, free T4 - WNL -UDS - negative -Echo07/12 - The left ventricle is normal size. There is normal left ventricular wall thickness. The EF is 65-70%. The LV diastolic function is normal. The left atrium is moderately dilated. There is mild tricuspic regurgitation. Right ventricular systolic pressure is estimated at 31 mmHg. There is no pulmonary hypertension. The pulmonary valve is normal in structure. The aortic root is normal in size. There is no pericardial effusion. Meds -Home metoprolol succ XL 50 mg PO daily -Heparin drip -Daily ASA 81 mg PO daily -Cardio consulted, Dr. Gatica --Cariac cath today - f/u results Elevated troponins -Suspect 2/2 Afib - no chest pain, no ST changes on EKG, and sx resolved -Initial EKG - NSR -ROMIs - 3 sets of Q6 troponins remained elevated on admission. Fourth troponin normalized. Elevated pro-BNP -Again, suspect 2/2 A-fib --No rales/crackles on exam, patient not short of breath, no pedal edema -See echo results above -F/u cath results Hx CAD s/p CABG 12 years ago Meds -ASA 81 mg PO daily -Toprol XL 50 mg PO daily -Atorvastatin 20 mg PO HS --> Started Crestor 10 mg PO HS -Home plavix held (75 mg PO daily ) --> On hep drip -F/u cardiac cath Ppx: No GI PPx indicated DVT: On heparin drip Assessment and plan d/w Dr. Ramírez Martinez, PGY-1
[2018-07-13] MEDS ORDERED: Sodium Chloride 0.9% 1,000 ML IV SCH (15:15)
--- NOTE | 2018-07-13 15:31 | CP.PCM.PN ---
Subjective - Date & Time of Evaluation Date of Evaluation: 07/13/18 Time of Evaluation: 15:26 - Subjective Subjective: Patient s/p Cardiac cath L Main: long 70%, LAD: Mid instent 100% L Cx/OM1: OM1 100% RCA: Prox instent 99%, Right dominant system EF: 60%, No WMA, EDP 12 SVG to LAD patent SVG to OM1 patent Recommend RCA intervention ASA, Plavix, Statins, b blockers and ACEI Bed rest 4 hours PCI in [facility] [place] in am NPO after mid night except meds Objective - Vital Signs/Intake and Output Vital Signs (last 24 hours): Temp Pulse Resp BP Pulse Ox 97.9 F 78 20 122/77 95 07/13/18 07:00 07/13/18 08:00 07/13/18 07:00 07/13/18 09:09 07/13/18 07:00 - Medications Medications: Current Medications Acetaminophen (Tylenol 325mg Tab) 650 mg PO Q6 PRN PRN Reason: Pain, Mild (1-3) Aspirin (Ecotrin) 81 mg PO DAILY [facility] Last Admin: 07/13/18 09:09 Dose: 81 mg Clopidogrel Bisulfate (Plavix) 75 mg PO DAILY [facility] Enoxaparin Sodium (Lovenox) 40 mg SC DAILY [facility] Furosemide (Lasix) 20 mg IVP DAILY [facility] Last Admin: 07/13/18 09:09 Dose: 20 mg Sodium Chloride (Sodium Chloride 0.9%) 1,000 mls @ 70 mls/hr IV .[id number] [facility] Stop: 07/14/18 15:16 Losartan Potassium (Cozaar) 100 mg PO DAILY [facility] Last Admin: 07/13/18 09:09 Dose: 100 mg Metoprolol Succinate (Toprol Xl) 50 mg PO DAILY [facility] Last Admin: 07/13/18 09:09 Dose: 50 mg Rosuvastatin Calcium (Crestor) 10 mg PO HS [facility] Last Admin: 07/12/18 22:00 Dose: 10 mg - Labs Labs: 07/13/18 07:00 07/13/18 07:00 PT 11.6 SECONDS (9.7-12.2) 07/13/18 10:54 INR 1.1 07/13/18 10:54 APTT 34 SECONDS (21-34) D 07/13/18 10:54
--- NOTE | 2018-07-14 00:31 | CARDCATH ---
PROCEDURE DATE: 07/13/2018 PROCEDURES: 1. Left heart catheterization. 2. Coronary angiogram. 3. Bypass graft angiogram. CLINICAL INDICATIONS: 1. Chest pain. 2. Non-ST elevation myocardial infarction. 3. History of coronary artery disease, status post CABG x2. 4. Hyperlipidemia. REFERRING PHYSICIAN: Oswaldo Smith DO DESCRIPTION OF PROCEDURE: After informed consent, the patient was prepped and draped in the usual sterile fashion. A 2% lidocaine was given in the right groin for local anesthesia. Using micropuncture technique, a 6-[place] sheath was introduced into right common femoral artery. Left heart catheterization, coronary angiogram, graft angiogram was done. The patient tolerated the procedure well. FINDINGS: 1. Left main coronary artery has a long 70% stenosis. 2. LAD has a mid 100% in-stent stenosis. 3. Left circumflex is patent. However, a large OM1 is 100% occluded. 4. Right coronary artery is dominant. The patient has a 99% in-stent proximal stenosis. Distal RCA and PDA are patent. The patient has a right dominant system. 5. SVG to LAD is patent. 6. SVG to OM1 is patent. 7. LV ejection fraction approximately 60%. EDP is 12. No gradient across the aortic valve. IMPRESSION: 1. Coronary artery disease as described above. 2. Recommend right coronary artery intervention. Jani Gatica MD
[2018-07-14 04:14] LABS: BASO % 0.4 % (0.0-2.0); EOS # 0.4 K/uL (0.0-0.7); EOS % 4.2 % (0.0-4.0); HEMOGLOBIN 13.5 g/dL (12.0-18.0); LYMPH # 1.9 K/uL (1.0-4.3); LYMPH % 17.8 % (20.0-40.0); MEAN CORPUSCULAR HEMOGLOBIN 29.6 pg (27.0-31.0); MEAN CORPUSCULAR HGB CONC 32.9 g/dL (33.0-37.0); MEAN PLATELET VOLUME 8.5 fL (7.2-11.7); MONO # 0.8 K/uL (0.0-0.8); MONO % 7.8 % (0.0-10.0); NEUT # 7.5 K/uL (1.8-7.0); NEUT % 69.8 % (50.0-75.0); NRBC % 0.1 % (0.0-2.0); RBC 4.56 Mil/uL (4.40-5.90); RED CELL DISTRIBUTION WIDTH 12.9 % (11.5-14.5); WHITE BLOOD COUNT 10.7 K/uL (4.8-10.8)
[2018-07-14 05:45] LABS: ALB/GLOB RATIO 1.3 (1.0-2.1); ALT/SGPT 19 U/L (21-72); AST/SGOT 35 U/L (17-59); BLOOD UREA NITROGEN 20 mg/dL (9-20); CALCIUM 8.6 mg/dl (8.6-10.4); GFR NON-AFRICAN AMERICAN > 60
--- NOTE | 2018-07-14 13:42 | CP.PCM.PN ---
Subjective - Date & Time of Evaluation Date of Evaluation: 07/14/18 Time of Evaluation: 15:43 - Subjective Subjective: PGY-[address] Ramírez Smith Patient seen and examined at bedside this morning prior to PCI at [facility] [place]. Patient had no acute complaints, tolerated initial cath procedure yesterday well, without complications. Patient denied chest pain, shoulder or back pain, palpitations, SOB, n/v/d/c, dizziness, headache. Team will f/u results of PCI post-procedure. Objective - Vital Signs/Intake and Output Vital Signs (last 24 hours): Temp Pulse Resp BP Pulse Ox 98.1 F 62 20 109/70 95 07/13/18 23:10 07/13/18 23:50 07/13/18 23:10 07/13/18 23:10 07/13/18 23:10 Intake and Output: 07/14/18 07/14/18 06:59 18:59 Intake Total 775 Balance 775 - Medications Medications: Current Medications Acetaminophen (Tylenol 325mg Tab) 650 mg PO Q6 PRN PRN Reason: Pain, Mild (1-3) Aspirin (Ecotrin) 81 mg PO DAILY [facility] Last Admin: 07/13/18 09:09 Dose: 81 mg Clopidogrel Bisulfate (Plavix) 75 mg PO DAILY [facility] Enoxaparin Sodium (Lovenox) 40 mg SC DAILY [facility] Furosemide (Lasix) 20 mg IVP DAILY [facility] Last Admin: 07/13/18 09:09 Dose: 20 mg Sodium Chloride (Sodium Chloride 0.9%) 1,000 mls @ 70 mls/hr IV .[id number] [facility] Stop: 07/14/18 15:16 Last Admin: 07/13/18 15:38 Dose: 70 mls/hr Losartan Potassium (Cozaar) 100 mg PO DAILY [facility] Last Admin: 07/13/18 09:09 Dose: 100 mg Metoprolol Succinate (Toprol Xl) 50 mg PO DAILY [facility] Last Admin: 07/13/18 09:09 Dose: 50 mg Rosuvastatin Calcium (Crestor) 10 mg PO HS [facility] Last Admin: 07/13/18 21:31 Dose: 10 mg - Labs Labs: 07/14/18 04:10 07/14/18 04:10 PT 11.6 SECONDS (9.7-12.2) 07/13/18 10:54 INR 1.1 07/13/18 10:54 APTT 34 SECONDS (21-34) D 07/13/18 10:54 - Constitutional Appears: Non-toxic, No Acute Distress - Head Exam Head Exam: ATRAUMATIC, NORMOCEPHALIC - Eye Exam Eye Exam: EOMI, Normal appearance - ENT Exam ENT Exam: Mucous Membranes Moist - Respiratory Exam Respiratory Exam: Clear to Ausculation Bilateral, NORMAL BREATHING PATTERN. absent: Rales, Rhonchi, Wheezes - Cardiovascular Exam Cardiovascular Exam: RRR, +S1, +S2 - GI/Abdominal Exam GI & Abdominal Exam: Soft, Normal Bowel Sounds. absent: Tenderness - Extremities Exam Extremities Exam: absent: Pedal Edema, Tenderness Additional comments: Minimal tenderness at catheterization site - Neurological Exam Neurological Exam: Alert, Awake, Oriented x3 - Psychiatric Exam Psychiatric exam: Normal Affect, Normal Mood - Skin Skin Exam: Dry, Intact Assessment and Plan - Assessment and Plan (Free Text) Assessment: NSTEMI/CAD, s/p CABG 12 years ago -On presenation - no chest pain, no ST changes on EKG, and sx resolved -Initial EKG - NSR -ROMIs - 3 sets of Q6 troponins remained elevated on admission. Fourth troponin normalized. -First our team suspected may be 2/2 atrial fibrillation, however as per cardiac cath results above, this patient has significant active CAD with elevated troponins. -Cardio consulted, Dr. Gatica --Caria cath today - per Dr. Gatica's documentation, cardiac cath results are as follows: Cath results -L Main: long 70%, -LAD: Mid instent 100% -L Cx/OM1: OM1 100% -RCA: Prox instent 99%, Right dominant system -EF: 60%, No WMA, EDP 12 -SVG to LAD patent -SVG to OM1 patent -Patient went today for PCI at [facility] [place] - team to f/u results s/p stent placement -Patient placed on heparin drip yesterday evening prior to PCI this morning, per Dr. Gatica. Heparin drip d/c'd and patient now on following appropriate CAD medications: Meds -ASA 81 PO daily -Plavix 75 mg PO daily -Lovenox 40 mg SC daily (also for DVT ppx) -Crestor 10 mg PO HS New onset AFib with RVR -Initial HR in 140s -S/p STAT dose cardizem in ED --> converted and remained normal sinus -Currently sinus on tele. Repeat EKG NSR -CHADS VASC score of 2 -TSH, free T4 - WNL -UDS - negative -Echo07/12 - The left ventricle is normal size. There is normal left ventricular wall thickness. The EF is 65-70%. The LV diastolic function is normal. The left atrium is moderately dilated. There is mild tricuspic regurgitation. Right ventricular systolic pressure is estimated at 31 mmHg. There is no pulmonary hypertension. The pulmonary valve is normal in structure. The aortic root is normal in size. There is no pericardial effusion. Meds -Toprol XL 50 mg PO daily -Plavix 75 mg PO daily Elevated pro-BNP -Pro BNP 2800 --No rales/crackles on exam, patient not short of breath, no pedal edema -See echo results above -Cath results as above HTN -BP controlled on Toprol XL 50 mg PO daily Ppx: No GI PPx indicated DVT: -Lovenox 40 mg SC daily Assessment and plan d/w Dr. Ramírez Martinez, PGY-1
--- NOTE | 2018-07-15 00:02 | CP.PCM.PN ---
Subjective - Date & Time of Evaluation Date of Evaluation: 07/14/18 Time of Evaluation: 20:20 - Subjective Subjective: Patient s/p RCA LEI stent Ambulate ASA/Plavix/B blcokers/Statins/POONAM I Possible d/c tomorrow Objective - Vital Signs/Intake and Output Vital Signs (last 24 hours): Temp Pulse Resp BP Pulse Ox 98.1 F 62 20 109/70 95 07/13/18 23:10 07/14/18 17:30 07/13/18 23:10 07/13/18 23:10 07/13/18 23:10 Intake and Output: 07/14/18 07/15/18 18:59 06:59 Intake Total 690 Balance 690 - Medications Medications: Current Medications Acetaminophen (Tylenol 325mg Tab) 650 mg PO Q6 PRN PRN Reason: Pain, Mild (1-3) Last Admin: 07/14/18 22:59 Dose: 650 mg Aspirin (Ecotrin) 81 mg PO DAILY [facility] Last Admin: 07/14/18 10:00 Dose: Not Given Clopidogrel Bisulfate (Plavix) 75 mg PO DAILY [facility] Enoxaparin Sodium (Lovenox) 40 mg SC DAILY [facility] Furosemide (Lasix) 20 mg IVP DAILY [facility] Last Admin: 07/14/18 10:00 Dose: Not Given Losartan Potassium (Cozaar) 100 mg PO DAILY [facility] Last Admin: 07/14/18 10:00 Dose: Not Given Metoprolol Succinate (Toprol Xl) 50 mg PO DAILY [facility] Last Admin: 07/13/18 09:09 Dose: 50 mg Rosuvastatin Calcium (Crestor) 10 mg PO HS [facility] Last Admin: 07/14/18 21:52 Dose: 10 mg - Labs Labs: 07/14/18 04:10 07/14/18 04:10 PT 11.6 SECONDS (9.7-12.2) 07/13/18 10:54 INR 1.1 07/13/18 10:54 APTT 34 SECONDS (21-34) D 07/13/18 10:54
[2018-07-15 07:23] LABS: BASO % 0.4 % (0.0-2.0); EOS # 0.6 K/uL (0.0-0.7); EOS % 5.4 % (0.0-4.0); HEMOGLOBIN 12.8 g/dL (12.0-18.0); LYMPH # 1.2 K/uL (1.0-4.3); LYMPH % 11.5 % (20.0-40.0); MEAN CELL VOLUME 90.2 fL (80.0-94.0); MEAN CORPUSCULAR HEMOGLOBIN 30.8 pg (27.0-31.0); MEAN CORPUSCULAR HGB CONC 34.2 g/dL (33.0-37.0); MONO # 0.7 K/uL (0.0-0.8); MONO % 7.2 % (0.0-10.0); NEUT # 7.8 K/uL (1.8-7.0); NEUT % 75.5 % (50.0-75.0); RBC 4.14 Mil/uL (4.40-5.90); RED CELL DISTRIBUTION WIDTH 13.4 % (11.5-14.5); WHITE BLOOD COUNT 10.3 K/uL (4.8-10.8)
[2018-07-15 07:55] LABS: ALB/GLOB RATIO 1.4 (1.0-2.1); ALBUMIN 3.7 g/dL (3.5-5.0); ALT/SGPT 23 U/L (21-72); AST/SGOT 29 U/L (17-59); BLOOD UREA NITROGEN 18 mg/dL (9-20); CALCIUM 8.1 mg/dl (8.6-10.4); GFR NON-AFRICAN AMERICAN > 60
[2018-07-15 08:21] VITALS: BP 136/76; PULSE 65; TEMP 98; O2SAT 99
[2018-07-15] MEDS: Metoprolol Succinate 50 mg XL Tab PO SCH (10:17)
--- NOTE | 2018-07-15 11:10 | CP.PCM.DIS ---
Provider - Provider Date of Admission: 07/11/18 12:07 Attending physician: Oswaldo Smith MD Consults: 07/11/18 14:33 Cardiology Consult Routine Comment: Consulting Provider: Jani Gatica Consulting Physician: Jani Gatica Reason for Consult: Chest pain, elevated troponins, started on heparin drip Time Spent in preparation of Discharge (in minutes): 45 Diagnosis - Discharge Diagnosis (1) CAD (coronary artery disease) Status: Acute Hospital Course - Lab Results Lab Results: Most Recent Lab Values WBC 10.3 K/uL (4.8-10.8) 07/15/18 07:06 RBC 4.14 Mil/uL (4.40-5.90) L 07/15/18 07:06 Hgb 12.8 g/dL (12.0-18.0) 07/15/18 07:06 Hct 37.4 % (35.0-51.0) 07/15/18 07:06 MCV 90.2 fL (80.0-94.0) 07/15/18 07:06 MCH 30.8 pg (27.0-31.0) 07/15/18 07:06 MCHC 34.2 g/dL (33.0-37.0) 07/15/18 07:06 RDW 13.4 % (11.5-14.5) 07/15/18 07:06 Plt Count 247 K/uL (130-400) 07/15/18 07:06 MPV 9.0 fL (7.2-11.7) 07/15/18 07:06 Neut % (Auto) 75.5 % (50.0-75.0) H 07/15/18 07:06 Lymph % (Auto) 11.5 % (20.0-40.0) L 07/15/18 07:06 [place] % (Auto) 7.2 % (0.0-10.0) 07/15/18 07:06 Eos % (Auto) 5.4 % (0.0-4.0) H 07/15/18 07:06 Baso % (Auto) 0.4 % (0.0-2.0) 07/15/18 07:06 Neut # (Auto) 7.8 K/uL (1.8-7.0) H 07/15/18 07:06 Lymph # (Auto) 1.2 K/uL (1.0-4.3) 07/15/18 07:06 Gentry # (Auto) 0.7 K/uL (0.0-0.8) 07/15/18 07:06 Eos # (Auto) 0.6 K/uL (0.0-0.7) 07/15/18 07:06 Baso # (Auto) 0.0 K/uL (0.0-0.2) 07/15/18 07:06 PT 11.6 SECONDS (9.7-12.2) 07/13/18 10:54 INR 1.1 07/13/18 10:54 APTT 34 SECONDS (21-34) D 07/13/18 10:54 D-Dimer, Quantitative < 200 ng/mlDDU (0-243) 07/11/18 10:48 Sodium 135 mmol/L (132-148) 07/15/18 07:06 Potassium 4.3 mmol/L (3.6-5.2) 07/15/18 07:06 Chloride 101 mmol/L (98-107) 07/15/18 07:06 Carbon Dioxide 27 mmol/L (22-30) 07/15/18 07:06 Anion Gap 11 (10-20) 07/15/18 07:06 BUN 18 mg/dL (9-20) 07/15/18 07:06 Creatinine 1.0 mg/dL (0.8-1.5) 07/15/18 07:06 Est GFR ( Amer) > 60 07/15/18 07:06 Est GFR (Non-Af Amer) > 60 07/15/18 07:06 Random Glucose 106 mg/dL (75-110) 07/15/18 07:06 Calcium 8.1 mg/dl (8.6-10.4) L 07/15/18 07:06 Phosphorus 3.0 mg/dL (2.5-4.5) 07/15/18 07:06 Magnesium 1.6 mg/dL (1.6-2.3) 07/15/18 07:06 Total Bilirubin 0.6 mg/dL (0.2-1.3) 07/15/18 07:06 AST 29 U/L (17-59) 07/15/18 07:06 ALT 23 U/L (21-72) 07/15/18 07:06 Alkaline Phosphatase 63 U/L (38-126) 07/15/18 07:06 Total Creatine Kinase 119 U/L (55-170) 07/12/18 03:40 CK-MB (Mass) 1.88 ng/mL (0.0-3.38) 07/12/18 03:40 Troponin I 0.0980 ng/mL (0.00-0.120) 07/12/18 03:40 NT-Pro-B Natriuret Pep 2780 pg/mL (0-900) H 07/11/18 10:48 Total Protein 6.5 g/dL (6.3-8.3) 07/15/18 07:06 Albumin 3.7 g/dL (3.5-5.0) 07/15/18 07:06 Globulin 2.7 gm/dL (2.2-3.9) 07/15/18 07:06 Albumin/Globulin Ratio 1.4 (1.0-2.1) 07/15/18 07:06 Triglycerides 76 mg/dL (0-149) 07/12/18 03:40 Cholesterol 126 mg/dL (0-199) 07/12/18 03:40 LDL Cholesterol Direct 87 mg/dL (0-129) 07/12/18 03:40 HDL Cholesterol 32 mg/dL (30-70) 07/12/18 03:40 Free T4 1.09 ng/dL (0.78-2.19) 07/12/18 07:15 TSH 3rd Generation 1.70 mIU/L (0.46-4.68) 07/12/18 03:40 Urine Color Yellow (YELLOW) 07/11/18 10:50 Urine Clarity Hazy (Clear) 07/11/18 10:50 Urine pH 7.0 (5.0-8.0) 07/11/18 10:50 Ur Specific [place] 1.010 (1.003-1.030) 07/11/18 10:50 Urine Protein Negative mg/dL (NEGATIVE) 07/11/18 10:50 Urine Glucose (UA) Normal mg/dL (Normal) 07/11/18 10:50 Urine Ketones Negative mg/dL (NEGATIVE) 07/11/18 10:50 Urine Blood 1+ (NEGATIVE) H 07/11/18 10:50 Urine Nitrate Negative (NEGATIVE) 07/11/18 10:50 Urine Bilirubin Negative (NEGATIVE) 07/11/18 10:50 Urine Urobilinogen Normal mg/dL (0.2-1.0) 07/11/18 10:50 Ur Leukocyte Esterase Neg [place]/uL (Negative) 07/11/18 10:50 Urine WBC (Auto) < 1 /hpf (0-5) 07/11/18 10:50 Urine RBC (Auto) 2 /hpf (0-3) 07/11/18 10:50 Urine Opiates Screen Negative (NEGATIVE) 07/11/18 22:45 Urine Methadone Screen Negative (NEGATIVE) 07/11/18 22:45 Ur Barbiturates Screen Negative (NEGATIVE) 07/11/18 22:45 Ur Phencyclidine Scrn Negative (NEGATIVE) 07/11/18 22:45 Ur Amphetamines Screen Negative (NEGATIVE) 07/11/18 22:45 U Benzodiazepines Scrn Negative (NEGATIVE) 07/11/18 22:45 U Oth Cocaine Metabols Negative (NEGATIVE) 07/11/18 22:45 U Cannabinoids Screen Negative (NEGATIVE) 07/11/18 22:45 - Hospital Course Hospital Course: HPI (As per admission): Sejal Luther is a 72-year-old male with HTN, vertigo, CABG and stenting presenting with uncomfortable feeling in chest, palpitations, tachycardia, elevated blood pressure, dry mouth, left hip pain. These complaints, except the leg pain, started last night when his son took his blood pressure and checked his pulse. The symptoms remained until the morning, at which point he agreed to go to the hospital. Upon pt interview the unc omfortable feeling in chest, palpitations, tachycardia had become better. The leg pain started 1 month ago when pt had been on a 16-hour flight from [facility] to the [place] to visit his who he has been staying with for the past month. During the flight he was not able to move much and developed pain of the left hip that radiates down the leg to the top of the foot. Pt states he exercises regularly everyday, but had not been able to since the leg pain. Pt believes it is this lack of regular exercise which caused him to feel the palpitations, tachycardia, uncomfortable feeling in the chest, and elevated blood pressure. The pain is intermittent and he rates the leg pain an 8/10 at worst and 0/10 at best and currently. The pain will last for 5-10 minutes until he is able to readjust his body and relieve the pain. He takes ibuprofen which helps, and walking/exercising/taking stairs aggravates the leg pain. Hospital Course: Patient was admitted for chest pain (R/o ACS) and New-onset of atrial fibrillation with RVR. Patient was given a dose of cardizem in ED upon admission and was converted to normal sinus rhythm and patient remained in NSR over the course of admission. In addition, cardiology consult was placed to Dr. Gatica for further evaluation considering his significant cardiac history. Patient was taken for a diagnostic cardiac catherization by Dr. Gatica and was noted to have L Main: long 70%, LAD: Mid instent 100% L Cx/OM1: OM1 100%, RCA: Prox instent 99%, Right dominant system, EF: 60%, No WMA, EDP 12, SVG to LAD patent SVG to OM1 patent. Recommendation was made for PCI due diagnostic cardiac cauterization findings. Patient was transferred to [facility], 07/14/17 for PCI of the RCA, which patient tolerated very well. Upon discharge, patient is stable and without any acute symptoms. Patient was discharge with appropriate medications and discharge instructions, which was explained to patient and his son. Pertinent imaging and work-up - Pro BNP 2800 - TSH, free T4 - WNL - UDS - negative - ROMIs - 3 sets of Q6 troponins remained elevated on admission. Fourth troponin normalized. - Echo07/12 - The left ventricle is normal size. There is normal left ventricular wall thickness. The EF is 65-70%. The LV diastolic function is normal. The left atrium is moderately dilated. There is mild tricuspic regurgitation. Right ventricular systolic pressure is estimated at 31 mmHg. There is no pulmonary hypertension. The pulmonary valve is normal in structure. The aortic root is normal in size. There is no pericardial effusion. Diagnostic Cardiac catherization: L Main: long 70%, LAD: Mid instent 100% L Cx/OM1: OM1 100%, RCA: Prox instent 99%, Right dominant system, EF: 60%, No WMA, EDP 12, SVG to LAD patent. SVG to OM1 patent. PCI intervention of the RCA on 07/14/17 This is a brief summary of event. For a complete admission course, please refer to the EMR and medical records Discharge Exam - Head Exam Head Exam: ATRAUMATIC, NORMOCEPHALIC - Eye Exam Eye Exam: EOMI, Normal appearance - ENT Exam ENT Exam: Mucous Membranes Moist - Respiratory Exam Respiratory Exam: Clear to PA & Lateral, NORMAL BREATHING PATTERN. absent: Decreased Breath Sounds, Prolonged Expiratory Phase, Wheezes, Respiratory Distress - Cardiovascular Exam Cardiovascular Exam: REGULAR RHYTHM, +S1, +S2. absent: Bradycardia, Tachycardia, Clicks, Diastolic murmur - GI/Abdominal Exam GI & Abdominal Exam: Normal Bowel Sounds, Soft. absent: Distended, Firm, Guarding, Tenderness, Unremarkable - Extremities Exam Extremities exam: normal inspection Additional comments: S/p Diagnostic cardiac catherization and PCI via Right and Left femoral - No hematoma noted bilaterally or bleeding - Femoral, DP and PT pulses present bilaterally - Back Exam Back exam: absent: CVA tenderness (L), CVA tenderness (R) - Neurological Exam Neurological exam: Alert, Normal Gait, Oriented x3 - Psychiatric Exam Psychiatric exam: Normal Affect, Normal Mood - Skin Skin Exam: Normal Color Discharge Plan - Discharge Medications Prescriptions: Aspirin [Ecotrin] 81 mg PO DAILY 30 Days #30 tablet. Atorvastatin [Lipitor] 20 mg PO HS 30 Days #30 tab Clopidogrel [Plavix] 75 mg PO DAILY 30 Days #30 tab Losartan [Cozaar] 100 mg PO DAILY 30 Days #30 tab Metoprolol Succinate XL [Toprol XL] 50 mg PO DAILY 30 Days #30 tab - Follow Up Plan Condition: FAIR Disposition: HOME/ ROUTINE Additional Instructions: Please discharge patient home Please continue all home medications: - Plavix 75mg PO daily at 8am in the morning - ASA 81mg PO daily at 8am in the morning - Cozaar 100mg PO daily at 2pm - Metoprolol Succinate XL 50mg twice daily at 8am and 8pm - Atorvastatin 20mg PO at bedtime at 8pm Please fill all these prescriptions if you do not have the medications at home Please follow up with your inpatient operations associate, Dr. Gatica; [phone]; please call the office on 07/17/17 between the hours 11am-5pm and ask for Mary to discuss fee and if the fee is to high, patient may please follow up with our [facility] ([facility], please call [phone]) Patient should please avoid flying back to [place] or any air flying for the next14 days. Patient must obtain clearance by operations associate in order to fly back to [place] Patient will need to follow up with his operations associate in [facility] for Holter monitoring in order to monitor for noted Cardiac Arrthymia (Atrial fibrillation on admission). Patient has not been in Atrial fibrillation over the course of his admission. However, Holter monitor is needed for further evaluation of cardiac arrthymia (Atrial fibrillation) in order to determine if patient needs long-term anticoagulation. Please return to the hospital if symptoms resume Please take care Referrals: [facility] [Provider Group] - 7 Days (Please follow up as needed within 1 week of discharge ) Jani Gatica MD [Staff Provider] - 1 Day (Please call Dr. Gatica's office and ask for Mrs. Hernandez on 07/17/18 between the hours of 11am-5pm )
[2018-07-17] MEDS ORDERED: Enoxaparin 40 mg Syringe SC SCH (10:00)
== END 2018-07-15 17:30 | disposition home or self-care (01) | DRG 281 ==
LOC: C.ER 09:29 → C.6T 12:07
PROVIDERS: ADMIT Family Medicine; ATTEND Family Medicine
PROC: 4A023N7 Measurement of Cardiac Sampling and Pressure, Left Heart, Percutaneous Approach (ICD-10-PCS; principal; 2018-07-13)
PROC: B2111ZZ Fluoroscopy of Multiple Coronary Arteries using Low Osmolar Contrast (ICD-10-PCS; 2018-07-13)
PROC: B2131ZZ Fluoroscopy of Multiple Coronary Artery Bypass Grafts using Low Osmolar Contrast (ICD-10-PCS; 2018-07-13)
DX: I21.4 Non-ST elevation (NSTEMI) myocardial infarction (principal); T82.855A Stenosis of coronary artery stent, initial encounter; I25.10 Atherosclerotic heart disease of native coronary artery without angina pectoris; Z95.1 Presence of aortocoronary bypass graft; I50.9 Heart failure, unspecified; I11.0 Hypertensive heart disease with heart failure; R68.2 Dry mouth, unspecified; R42 Dizziness and giddiness; R00.2 Palpitations; R00.0 Tachycardia, unspecified; M25.552 Pain in left hip; I48.91 Unspecified atrial fibrillation; E78.5 Hyperlipidemia, unspecified; Y83.1 Surgical operation with implant of artificial internal device as the cause of abnormal reaction of the patient, or of later complication, without mention of misadventure at the time of the procedure; Z79.02 Long term (current) use of antithrombotics/antiplatelets; Z79.82 Long term (current) use of aspirin; Z79.899 Other long term (current) drug therapy